=== PATIENT | male | born 1970 | race Two or more races ===

== ENCOUNTER 2021-03-22 16:10 | Emergency (ER) | payer OTHER ==
[~2021-03-22] VITALS: Ht 175.3 cm; Wt 90.9 kg
[2021-03-22] MEDS ORDERED: BENZOCAINE 10% 7 GM GEL TP ONE (16:30)
[2021-03-22 18:48] VITALS: BP 147/82
== END 2021-03-22 19:06 | disposition home or self-care (01) ==
LOC: EMS 16:10
DX: S01.511A Laceration without foreign body of lip, initial encounter (principal); M54.2 Cervicalgia; Y04.2XXA Assault by strike against or bumped into by another person, initial encounter; Y93.89 Activity, other specified; Y92.89 Other specified places as the place of occurrence of the external cause; Y99.8 Other external cause status
CPT/HCPCS: 70450; 72125; 99285